=== PATIENT | female | born 1990 | race Caucasian/White ===

== ENCOUNTER 2021-11-13 19:38 | Emergency (ER) | payer BC, SELFPAY ==
[2021-11-13 19:56] VITALS: BP 117/58; PULSE 78; RESP 16; TEMP 36.9; O2SAT 99
--- NOTE | 2021-11-13 20:06 | ED.FEMALEGU ---
HPI - Female Genitourinary General Chief complaint: Urogenital-Female Stated complaint: uti Time Seen by Provider: 11/13/21 20:06 Source: patient and RN notes reviewed Mode of arrival: ambulatory Limitations: no limitations History of Present Illness HPI Narrative: 31-year-old female presented for complaint of urinary frequency, urgency, dysuria, onset today. She also states she feels like her bladder is not fully emptying. She denies abdominal pain, nausea, vomiting, constipation or flank pain, fevers or chills. Denies concern for STD. Related Data Home Medications Medication Instructions Recorded Confirmed calcium 100 mg capsule 100 mg PO DAILY 11/13/21 11/13/21 [id number] 1 mg 1 tablet PO DAILY 11/13/21 11/13/21 tablet vitamin B complex (B 1 tablet DAILY 11/13/21 11/13/21 Complex-Vitamin B12 tablet) Allergies Allergy/AdvReac Type Severity Reaction Status Date / Time aloe vera Allergy Rash Verified 11/13/21 19:55 Review of Systems Review of Systems: CONSTITUTIONAL: Denies body aches, fever, chills, or sweats. CARDIOVASCULAR: Denies chest pain, palpitations, or edema. RESPIRATORY: Denies cough or dyspnea. GASTROINTESTINAL: Denies abdominal pain, nausea, vomiting, or diarrhea. GENITOURINARY: Reports dysuria, frequency, urgency, denies hematuria, flank pain SKIN: Denies rash, itching, or wounds. MUSCULOSKELETAL: Denies back pain or myalgia. PMFSH Comments At time of signature, I have reviewed and agree with nursing past medical, surgical, social and family history unless otherwise noted. Please see nursing chart for further information. There is no relevant family history pertinent to the presenting complaint Exam Narrative: GENERAL: Well-appearing and in no acute distress. CHEST: No respiratory distress. Clear to auscultation. HEART: Regular rate and rhythm. ABDOMEN: Soft, nontender, nondistended, normal active bowel sounds. No CVA tenderness SKIN: Warm, dry, no rash. NEURO: No focal deficits. Alert and oriented x3. Gait steady. PSYCH: Normal affect. Course Course Emergency Course: Patient is aware of diagnosis, understands and agrees to treatment plan. Anticipatory guidance given. Patient agrees to follow-up as directed and is aware of reasons to seek care at the emergency department. Portions of this record may have been created with voice recognition software Level of Care: Express Care Visit Vital Signs Vital signs: Vital Signs Temperature 98.4 F 11/13/21 19:56 Pulse Rate 78 11/13/21 19:56 Respiratory Rate 16 11/13/21 19:56 Blood Pressure 117/58 L 11/13/21 19:56 Pulse Oximetry 99 11/13/21 19:56 Oxygen Delivery Room Air 11/13/21 19:56 Temperature 98.4 F 11/13/21 19:56 Pulse Rate 78 11/13/21 19:56 Respiratory Rate 16 11/13/21 19:56 Blood Pressure 117/58 L 11/13/21 19:56 Pulse Oximetry 99 11/13/21 19:56 Oxygen Delivery Room Air 11/13/21 19:56 Reviewed MDM - Female Genitourinary MDM Narrative Medical decision making narrative: Results of UA reviewed with patient, prescription for antibiotic prescribed and she is advised urine will be sent for culture. She is stable and appropriate for outpatient treatment and follow-up Differential Diagnosis Differential diagnosis: Likely urinary tract infection and cystitis Lab Data Labs: Urine Glucose Negative Reference Range: Negative Urine Bilirubin Negative Reference Range: Negative Urine Ketone Negative Reference Range: Negative Urine Specific Prentiss 1.025 Reference Range:1.001-1.035 Urine Blood 2+ Reference Range: Negative
== END 2021-11-13 20:21 | disposition home or self-care (01) ==
PROVIDERS: Emergency Provider Nurse Practitioner Family
DX: N39.0 Urinary tract infection, site not specified (principal)
CPT/HCPCS: 81003; 87086; 87088; 99203; G0463